=== PATIENT | female | born 1965 | race Caucasian/White ===

== ENCOUNTER → 2018-02-17 | Emergency (ER) | payer OTHER ==
[~2018-02-17] VITALS: Ht 177.8 cm; Wt 113.4 kg
[~2018-02-17] MED LIST: ATIVAN1 M1 PO; CIPRO500 MG PO; FLAGYL500MG PO; INTESTINEX1 CA1 PO; INTESTINEX680 M1 PO; KETO10TA2 PO; LEVSIN/SL0.125 MG PO; MIRALAX17 GM PO; NEURONTIN300 MG PO; PAXIL40 MG PO; PRILOSEC2.5 MG; SYNTHROID50 MCG; ULTRACET PO; ZANTAC150 MG PO; ZANTAC300 MG PO; ZOFRAN ODT4 MG PO
== END | disposition home or self-care (01) ==
LOC: ER 15:47
DX: R10.32 Left lower quadrant pain (principal); K57.32 Diverticulitis of large intestine without perforation or abscess without bleeding

== ENCOUNTER 2018-08-19 10:28 | Outpatient (CLI) | payer OTHER | END 2018-08-19 17:00 | disposition home or self-care (01) | LOC: TOM 10:28 | DX: R10.84 Generalized abdominal pain (principal); K43.2 Incisional hernia without obstruction or gangrene ==

== ENCOUNTER → 2020-03-06 | Outpatient (CLI) | payer OTHER | END | disposition home or self-care (01) | LOC: RAD 09:40 | DX: S72.455A Nondisplaced supracondylar fracture without intracondylar extension of lower end of left femur, initial encounter for closed fracture (principal); M54.5 Low back pain; M54.16 Radiculopathy, lumbar region | CPT/HCPCS: 72148 ==

== ENCOUNTER 2020-10-04 06:14 | Day surgery (SDC) | payer OTHER | END 2020-10-04 10:10 | disposition home or self-care (01) | LOC: AMB-ENDOS 06:14 | PROVIDERS: ATTEND Colon & Rectal Surgery | DX: K57.32 Diverticulitis of large intestine without perforation or abscess without bleeding (principal); K64.0 First degree hemorrhoids; Z20.828 Contact with and (suspected) exposure to other viral communicable diseases ==

== ENCOUNTER 2024-10-17 11:05 | Outpatient (CLI) | payer OTHER | END 2024-10-17 11:06 | disposition home or self-care (01) | LOC: NUCLEAR 11:05 | DX: M19.90 Unspecified osteoarthritis, unspecified site (principal); M81.0 Age-related osteoporosis without current pathological fracture; I73.9 Peripheral vascular disease, unspecified; R42 Dizziness and giddiness ==